=== PATIENT | male | born 1940 | race Caucasian/White ===

== ENCOUNTER 2016-10-18 15:01 | Emergency (ER) | payer MEDICARE, OTHER ==
--- NOTE | ~2016-10-18 | CR170 ---
[facility] A Service of [facility] & [facility] RADIOLOGY TEXT RESULTS PATIENT: ANGELITA COBURN LOCATION: CFTX : 44 UNIT #: [id number] AGE: [address]: Aren Garcia SEX: M ORDER DR: [id number] [facility] [address] [place], [place] [address] [id number] E MR#: [id number] Acc #: [id number] NAME: ANGELITA COBURN : 1940 SEX: M STUDY DATE/TIME: 10/18/2016 15:26 UNIT: CFOR ROOM: STUDY DESCRIPTION: CR Knee 2 Views Rt Attending Physician: Aren Garcia Ordering Physician: Ed Doc Kosta Oviedo Primary Care Physician: Antonio Lunsford D.O. MEDICAL IMAGING REPORT This report is preliminary unless electronic signature is present EXAM Right knee, 10/18/2016. HISTORY Anterior knee pain after a fall today. FINDINGS 2 views of the right knee are compared with 05/13/2016. Again seen is severe tricompartmental osteoarthritis with medial compartment joint space narrowing. Diffuse atherosclerotic calcification noted, as well. No acute fracture is seen. There may be a small joint effusion. IMPRESSION Osteoarthritis and atherosclerotic disease. Small joint effusion may be present. No acute fracture. Dictated by... Antonio Villarreal Jr., M.D. THIS IS AN ELECTRONICALLY VERIFIED REPORT Antonio Villarreal Jr., M.D. at 10/19/2016 8:12 AM SUSHMA/arthur TD: 10/18/2016 18:59 JOB #: [id number] MEDICAL IMAGING REPORT COPY
[~2016-10-18 15:01] MED LIST: ALEVE220 M1 PO; ASPIRIN81 M1 PO; ASPIRIN81 M2 PO; ASPIRINEC PO; CALTRATE-600/VI1 TA1 PO; CENTRUM SILVER PO; COLACE PO; CORGARD PO; CYCLOBENZAPRINE5 MG; CYCLOBENZAPRINE5 MG PO; CYMBALTA PO; CYPROHEPTADINE H4 MG PO; DITROPAN PO; DOXEPIN HCL25 MG PO; DYNACIN100 MG PO; ENDOCET 5-3251 EACH PO; FERRO-TIME325 MG PO; GABAPENTIN300 MG PO; GLUCOPHAGE500 M1 PO; GLUCOPHAGE500 MG PO; GLYBURIDE PO; HCTZ PO; HYDRALAZINE HCL25 MG PO; HYDROCHLOROTHIA25 MG PO; HYDROCODON-ACE1 EAC7 PO; IRON TABLETS1 TAB PO; IRON1 TAB PO; IRON45 MG PO; JANUVIA25 MG PO; KEFZOL2 GM INJ; LANTUS100 U/ML INJ; LASIX PO; LEVOTHYROXINE100 MCG PO; LISINOPRIL PO; LISINOPRIL20 MG PO; LORAZEPAM0.5 MG PO; METFORMIN HCL500 M1 PO; METOPROLOL SUCC50 MG PO; MULTI-VITAMIN1 EAC1 PO; MULTIPLE VITAMI1 T11 PO; MULTIVITAMIN1 UDCAP PO; MYRAC50 MG PO; NAFCILLIN SO2 G/VIAL IJ; NORVASC PO; NOVOLIN 70/30 U13 M1 SQ; NOVOLIN 70/30 V10 M1; NOVOLIN R100 U/ML SUBQ; NOVOLOG MI100 UNIT/1 SUBQ; NOVOLOG100 U/M1 SQ; NOVOLOG100 U/M2 SUBQ; NOVOLOG7030; NOVOLOG7030 SQ; OXYCODONE-ACET1 EAC1 PO; PAIN RELIEF650 MG PO; PERCOCET 5/321 UDTAB PO; PERCOCET5/325 PO; PLAVIX PO; PLENDIL10 MG PO; PRILOSEC PO; PRILOSEC40 MG PO; PRINCIPEN500 M1 PO; PRINIVIL5 MG PO; SIMVASTATIN20 MG PO; STARLIX PO; STOOL SOFTENER100 M1 PO; TENORMIN50 MG PO; TETRACYCLINE PO; TOPROL XL 50 MG50 MG PO; UROXATRAL10 MG PO; VESICARE PO; WELLBUTRIN SR150 MG; XARELTO PO; ZANTAC150 MG PO; ZESTRIL5 MG PO; ZOCOR PO; ZOCOR10 MG PO; ZOLOFT PO; ZOLOFT100 MG PO; ZYLOPRIM100 MG PO
== END 2016-10-18 16:38 | disposition home or self-care (01) ==
LOC: CFTX 15:01
DX: M25.461 Effusion, right knee (principal); E11.9 Type 2 diabetes mellitus without complications; I10 Essential (primary) hypertension; N28.9 Disorder of kidney and ureter, unspecified; W19.XXXA Unspecified fall, initial encounter; Y92.009 Unspecified place in unspecified non-institutional (private) residence as the place of occurrence of the external cause
CPT/HCPCS: 29530; 73560; 96372; 99283; J1885